=== PATIENT | male | born 1965 | race Two or more races ===

== ENCOUNTER 2018-03-31 01:07 | Emergency (ER) | payer SELFPAY ==
[~2018-03-31] VITALS: Ht 170.2 cm; Wt 81.6 kg
[2018-03-31 05:45] VITALS: BP 140/76
== END 2018-03-31 07:25 | disposition home or self-care (01) ==
LOC: ER 01:07
DX: S60.211A Contusion of right wrist, initial encounter (principal); M62.838 Other muscle spasm; Z88.0 Allergy status to penicillin; V43.52XA Car driver injured in collision with other type car in traffic accident, initial encounter; Y93.89 Activity, other specified; Y99.8 Other external cause status; Y92.410 Unspecified street and highway as the place of occurrence of the external cause
CPT/HCPCS: 71250; 72125; 72131; 73090; 74176